=== PATIENT | male | born 1995 | race African-American/Black ===

== ENCOUNTER 2017-01-07 16:50 | Emergency (ER) | payer OTHER, MEDICAID | END 2017-01-07 17:17 | disposition home or self-care (01) | LOC: MADERS 16:50 | DX: J45.909 Unspecified asthma, uncomplicated (principal) | CPT/HCPCS: J7620 ==

== ENCOUNTER 2017-03-19 22:54 | Emergency (ER) | payer OTHER | END 2017-03-19 23:16 | disposition home or self-care (01) | LOC: MADERS 22:54 | DX: S00.83XA Contusion of other part of head, initial encounter (principal); J45.909 Unspecified asthma, uncomplicated; W22.8XXA Striking against or struck by other objects, initial encounter | CPT/HCPCS: 99283 ==

== ENCOUNTER 2017-03-29 20:42 | Emergency (ER) | payer OTHER ==
[2017-03-29] MEDS ORDERED: Oseltamivir 75 MG CAP ONE (21:55)
[2017-03-29] MEDS ORDERED: Benzonatate 100 MG CAP ONE (21:57)
[2017-03-29] MEDS ORDERED: Ibuprofen 800 MG TAB ONE (21:57)
== END 2017-03-29 22:00 | disposition home or self-care (01) ==
LOC: MADERS 20:42
DX: J10.1 Influenza due to other identified influenza virus with other respiratory manifestations (principal); J45.909 Unspecified asthma, uncomplicated
CPT/HCPCS: 99284

== ENCOUNTER 2017-04-09 08:06 | Emergency (ER) | payer OTHER ==
[2017-04-09] MEDS ORDERED: Dexamethasone 4 MG TAB ONE (08:24)
[2017-04-09] MEDS ORDERED: Ventolin HFA Inhaler 60 PUFF INHALER ONE (08:24)
== END 2017-04-09 08:35 | disposition home or self-care (01) ==
LOC: MADERS 08:06
DX: J45.909 Unspecified asthma, uncomplicated (principal)
CPT/HCPCS: J8540

== ENCOUNTER 2017-05-31 15:15 | Emergency (ER) | payer OTHER, SELFPAY ==
[2017-05-31] MEDS ORDERED: Dexamethasone 4 MG TAB ONE (15:30)
== END 2017-05-31 15:50 | disposition home or self-care (01) ==
LOC: MADERS 15:15
DX: J45.909 Unspecified asthma, uncomplicated (principal)
CPT/HCPCS: J7620; J8540

== ENCOUNTER 2017-11-03 05:57 | Emergency (ER) | payer MEDICAID, OTHER ==
[2017-11-03] MEDS ORDERED: predniSONE 20 MG TAB ONE (06:11)
== END 2017-11-03 06:57 | disposition home or self-care (01) ==
LOC: MADERS 05:57
DX: J45.909 Unspecified asthma, uncomplicated (principal)
CPT/HCPCS: 94640; J7506; J7620

== ENCOUNTER 2018-12-01 03:55 | Emergency (ER) | payer OTHER, SELFPAY ==
[2018-12-01] MEDS ORDERED: Dexamethasone 4 MG TAB ONE (04:29)
--- NOTE | 2018-12-01 08:24 | RAD ---
PORTABLE CHEST 1 VIEW: DATE: 12/01/2018. TIME: 4:20 a.m. HISTORY: Asthma, dyspnea. FINDINGS: The heart size is normal. The lungs are clear. The bony thorax is normal. IMPRESSION: Normal exam. POS: [id number]
== END 2018-12-01 04:42 | disposition home or self-care (01) ==
LOC: MADERS 03:55 → EEVIPCON 03:55 → MADERS 04:42
DX: J45.909 Unspecified asthma, uncomplicated (principal)
CPT/HCPCS: 71045; 94640; J7620; J8540

== ENCOUNTER 2019-02-25 22:54 | Emergency (ER) | payer SELFPAY ==
[2019-02-25] MEDS ORDERED: Dexamethasone 4 MG TAB ONE (23:23)
[2019-02-25] MEDS ORDERED: Ventolin HFA Inhaler 60 PUFF INHALER ONE (23:23)
== END 2019-02-25 23:39 | disposition home or self-care (01) ==
LOC: MADERS 22:54
DX: J45.901 Unspecified asthma with (acute) exacerbation (principal); Z79.899 Other long term (current) drug therapy
CPT/HCPCS: 99284; J7620; J8540

== ENCOUNTER 2019-08-16 14:46 | Emergency (ER) | payer OTHER, SELFPAY ==
[2019-08-16] MEDS ORDERED: Ventolin HFA Inhaler 60 PUFF INHALER ONE (15:26)
[2019-08-16] MEDS ORDERED: Dexamethasone 4 MG TAB ONE (15:27)
== END 2019-08-16 15:45 | disposition home or self-care (01) ==
LOC: MADERS 14:46
DX: J45.909 Unspecified asthma, uncomplicated (principal)
CPT/HCPCS: 99284; J8540

== ENCOUNTER 2019-09-24 21:46 | Emergency (ER) | payer OTHER, SELFPAY ==
[2019-09-24] MEDS ORDERED: Adacel (T-DAP) 0.5 ML SYRINGE ONE (22:16)
== END 2019-09-24 22:35 | disposition home or self-care (01) ==
LOC: MADERS 21:46
DX: S01.412A Laceration without foreign body of left cheek and temporomandibular area, initial encounter (principal); J45.909 Unspecified asthma, uncomplicated; Z23 Encounter for immunization; W22.8XXA Striking against or struck by other objects, initial encounter
CPT/HCPCS: 12011; 90471; 90715

== ENCOUNTER 2021-01-28 11:39 | Emergency (ER) | payer BC, OTHER ==
[2021-01-28] MEDS ORDERED: predniSONE 20 MG TAB ONE (12:14)
== END 2021-01-28 12:55 | disposition home or self-care (01) ==
LOC: MADERS 11:39
DX: J45.901 Unspecified asthma with (acute) exacerbation (principal)
CPT/HCPCS: 71045; 94640; 94760; J7512; J7620

== ENCOUNTER 2021-11-06 21:07 | Emergency (ER) | payer OTHER ==
[2021-11-06] MEDS ORDERED: Azithromycin 250 MG TAB ONE ×2 (22:44→23:08)
[2021-11-06] MEDS ORDERED: Lidocaine 1% (PF) 30 ML VIAL ONE (22:44)
[2021-11-06] MEDS ORDERED: cefTRIAXone\\ROCEPHIN 1 GM VIAL ONE (22:46)
[2021-11-06 23:06] LABS: Bilirubin Negative (Negative); Blood, Urine Negative (Negative); Clarity Clear (Clear); Glucose, Urine (Dipstick) Negative (Negative); Ketone, Urine Trace mg/dL (Negative); Leukocyte Negative (Negative); Nitrite Negative (Negative); Protein, Urine (Dipstick) 30 mg/dL (Neg-Trace); Specific Gravity, Urine 1.025 (1.005-1.030); Urobilinogen 0.2 mg/dL (Less than 2); pH, Urine 5.5 (5.0-9.0)
[2021-11-06 23:08] LABS: RBC/HPF 0-3 HPF (0-3); Squamous Epithelial 0-3 HPF (0-3); WBC/HPF 0-3 HPF (0-3)
[2021-11-07 15:54] LABS: Chlam.trachomatis by PCR,Urine Not Detected (NotDetected)
== END 2021-11-06 23:38 | disposition home or self-care (01) ==
LOC: EEVIPCON 21:07 → MADERS 21:07
DX: J45.20 Mild intermittent asthma, uncomplicated (principal); N34.2 Other urethritis
CPT/HCPCS: 81003; 81015; 87491; 87591; 96372; J0696; J2001; J7620

== ENCOUNTER 2024-12-11 14:49 | Emergency (ER) | payer SELFPAY ==
[2024-12-11] MEDS ORDERED: Ondansetron PF 4 MG/2 ML Vial ONE (15:30)
[2024-12-11 15:32] LABS: #Basophils 0.0 thou/uL (0.0-0.2); #Eosinophils 0.0 thou/uL (0.0-0.7); #Lymphocytes 2.0 thou/uL (1.20-3.40); #Monocytes 0.5 thou/uL (0.11-0.59); #Neutrophils 2.5 thou/uL (1.40-6.50); %Basophils 0.3 % (0.0-1.0); %Eosinophils 0.3 % (0.0-10.0); %Lymphocytes 39.6 % (21.0-51.0); %Monocytes 10.4 % (0.0-10.0); %Neutrophils 49.4 % (42.0-75.0); Hematocrit 44.7 % (42.0-52.0); Hemoglobin 15.2 g/dL (14.0-18.0); Mean Corpuscular Hemoglobin 27.4 pg (27.0-31.0); Mean Corpuscular Volume 80.3 fl (78.0-98.0); Platelet Count 234 10x3/uL (130-400); Red Blood Cell (RBC) Count 5.56 mill/uL (4.70-6.10); White Blood Cell (WBC) Count 5.1 10x3/uL (4.8-10.8)
[2024-12-11 15:37] LABS: Bacteria/HPF 1+ HPF (None Seen); CAUTI Indications for Culture Dysuria,urgency,freq; Glucose, Urine (Dipstick) Negative (Negative); Leukocyte Trace (Negative); Protein, Urine (Dipstick) 30 mg/dL (Neg-Trace); RBC/HPF None Seen HPF (0-3); Specific Gravity, Urine 1.025 (1.005-1.030)
[2024-12-11 15:38] LABS: Urine Culture Reflex No No
[2024-12-11 15:50] LABS: ALT (SGPT) 11 U/L (Less than 45); AST (SGOT) 19 U/L (11-34); Albumin 3.9 g/dL (3.1-4.5); Alkaline Phosphatase 59 U/L (40-110); Anion Gap 16 mmol/L (10-20); BUN (Urea Nitrogen) 10 mg/dL (8.9-20.6); Bilirubin, Total 0.5 mg/dL (0.3-1.2); Calc. Creatinine Clearance 0 mL/min (70-130); Calcium 8.5 mg/dL (7.8-10.44); Carbon Dioxide 22 mmol/L (22-29); Chloride 106 mmol/L (98-107); Globulin 3.8 g/dL (2.4-3.5); Glucose 109 mg/dL (70-105); Lipase 32 U/L (8-78); Potassium 3.6 mmol/L (3.5-5.1); Sodium 140 mmol/L (136-145)
== END 2024-12-11 16:30 | disposition home or self-care (01) ==
LOC: MADERS 14:49
DX: R11.2 Nausea with vomiting, unspecified (principal); R82.71 Bacteriuria; J45.909 Unspecified asthma, uncomplicated
CPT/HCPCS: 80053; 81001; 83690; 85025; 87086; 96361; 96374; J2405; J7120